=== PATIENT | female | born 1965 | race Caucasian/White ===

== ENCOUNTER 2017-02-13 22:03 | Inpatient (IN) | payer MEDICAID, OTHER ==
--- NOTE | 2017-02-13 22:33 | ED Physician Chart ---
ED Chief Complaint/HPI - Patient Information Date Seen:: 02/13/17 Time Seen:: 22:20 Chief Complaint:: Abdominal pain since about 1 pm today. History of Present Illness:: Pt is [place] speaking. Interpretation is provided by nursing staff member Zoila. Pt was brought in by private auto because of onset of upper abdominal pain since about 1 pm today. Pain is characterized as constant, pressure like, localized at upper abdomen extending to RUQ. No fever. Pt has intermittent nausea. No vomiting. Last BM at 3 pm today that was small in quantity. No hematochezia or melena. ?dysuria. No urgency or frequency with urination. No gross hematuria. Pain can be worsened with lying down and can be improved with sitting up. Allergies:: Allergies Allergy/AdvReac Type Severity Reaction Status Date / Time No Known Allergies Allergy Verified 02/13/17 22:19 Vitals:: Vital Signs - 8 hr 02/13/17 22:03 Temp 97.2 F HR 70 RR 16 BP 125/60 O2 Sat % 95 Historian:: Patient Family MD/PCP:: Dr. Main LMP:: postmenopausal Review:: Nurse's Note Reviewed ED Review of Systems - Review of Systems General/Constitutional: No fever, No chills, No weight loss, No weakness, No edema, Loss of appetite Skin: No rash, No bruising Head: No headache, No light-headedness Eyes: No loss of vision, No pain ENT: No earache, No nasal drainage, No sore throat Neck: No neck pain, No swelling, No stiffness, No mass noted Cardio Vascular: No chest pain, No palpitations, No edema GI: Nausea, No vomiting, No diarrhea, Pain, No melena, No hematochezia, No hematemesis G/U: Dysuria, No frequency, No hematuria Water Control Supervisor: No vaginal discharge, No abnormal vaginal bleed Musculoskeletal: No bone or joint pain, No back pain Endocrine: No polyuria, No polydipsia Psychiatric: No prior psych history Hematopoietic: No bruising, No lymphadenopathy Allergic/Immuno: No urticaria, No angioedema Neurological: No syncope, Focal symptoms, No weakness, No headache, No confusion ED Past Medical History - Past Medical History Past Medical History: No significant medical hx Family History: None Social History: Non Smoker, No Alcohol, No Drug Use, , Other (lives with her ) Employment:: unemployed. Surgical History: other (right lower leg surgery related to fx 07/2016) Psychiatricy History: None Medication: Reviewed Family Medical History - Family Member Mother History Unknown: Yes ED Physical Exam - Physical Examination General/Constitutional: Awake, Well-developed, well-nourished, Alert, GCS 15, Non-toxic appearing, Ambulatory Other Gen/Cons comments:: Breathes comfortably, speaks clearly, and interacts normally. Head: Atraumatic Eyes: Lids, conjuctiva normal, PERRL, EOMI Other Eyes comments:: Anicteric sclera Skin: Nl inspection, No rash, No skin lesions, No ecchymosis, Well hydrated, No lymphadenopathy ENMT: External ears, nose nl, Nasal exam nl, Oropharynx nl Neck: Nontender, Full ROM w/o pain, No JVD, No nuchal rigidity, No mass, No stridor Respiratory: Nl effort/Exclusion, Clear to Auscultation, No Wheeze/Rhonchi/Rales Cardio Vascular: RRR, No murmur, gallop, rubs GI: No organomegaly, No hernia, Normal BS's, Nondistended, No mass/bruits, No McBurney tenderness Other GI comments:: Tenderness at epigastric region/medial aspect of RUQ. No R/G. Negative Newsoms's and Fajardo-Fallon's signs, and +/- Cristobal's sign. Abdomen is obese but soft. : No CVA tenderness Extremities: No tenderness or effusion, No edema Neuro/Psych: Alert/oriented (oriented x 3), Judgement/insight normal, Mood normal, Normal gait, No focal deficits ED Labs/Radiology/EKG Results - Lab Results Results: Laboratory Tests 02/13/17 02/13/17 02/13/17 22:40 22:55 22:55 WBC 9.6 RBC 5.11 H Hgb 13.8 Hct 42.9 MCV 83.8 MCH 27.1 MCHC Differential 32.3 RDW 14.4 Plt Count 232 MPV 11.0 Neutrophils % 77.5 Lymphocytes % 13.4 L Monocytes % 4.6 Eosinophils % 0.9 Basophils % 3.6 H PT 9.2 L INR 0.89 PTT (Actin FS) 25.2 L Sodium 134 L Potassium 4.0 Chloride 100 Carbon Dioxide 27.5 Anion Gap 10.5 BUN 14 Creatinine 0.7 Est GFR ( Amer) > 60.0 Est GFR (Non-Af Amer) > 60.0 BUN/Creatinine Ratio 20.0 Glucose 126 H Calcium 9.3 Total Bilirubin 1.9 H AST 289 H ALT 338 H Alkaline Phosphatase 265 H Creatine Kinase 55 Troponin I Total Protein 7.3 Albumin 3.8 Globulin 3.5 Albumin/Globulin Ratio 1.1 Amylase 45 Lipase 43 Serum , Qual 02/13/17 02/13/17 22:55 22:55 WBC RBC Hgb Hct MCV MCH MCHC Differential RDW Plt Count MPV Neutrophils % Lymphocytes % Monocytes % Eosinophils % Basophils % PT INR PTT (Actin FS) Sodium Potassium Chloride Carbon Dioxide Anion Gap BUN Creatinine Est GFR ( Amer) Est GFR (Non-Af Amer) BUN/Creatinine Ratio Glucose Calcium Total Bilirubin AST ALT Alkaline Phosphatase Creatine Kinase Troponin I < 0.01 L Total Protein Albumin Globulin Albumin/Globulin Ratio Amylase Lipase Serum , Qual NEGATIVE Laboratory Last Values WBC 9.6 Th/cmm (4.8-10.8) 02/13/17 22:40 RBC 5.11 Mil/cmm (3.80-5.10) H 02/13/17 22:40 Hgb 13.8 gm/dL (12-16) 02/13/17 22:40 Hct 42.9 % (41.0-60) 02/13/17 22:40 MCV 83.8 fl (81-100) 02/13/17 22:40 MCH 27.1 pg (27.0-31.0) 02/13/17 22:40 MCHC Differential 32.3 pg (28.0-36.0) 02/13/17 22:40 RDW 14.4 % (11.5-20.0) 02/13/17 22:40 Plt Count 232 Th/cmm (150-400) 02/13/17 22:40 MPV 11.0 fl 02/13/17 22:40 Neutrophils % 77.5 % (40.0-80.0) 02/13/17 22:40 Lymphocytes % 13.4 % (20.0-50.0) L 02/13/17 22:40 Monocytes % 4.6 % (2.0-10.0) 02/13/17 22:40 Eosinophils % 0.9 % (0.0-5.0) 02/13/17 22:40 Basophils % 3.6 % (0.0-2.0) H 02/13/17 22:40 PT 9.2 SECONDS (9.5-11.5) L 02/13/17 22:55 INR 0.89 (0.5-1.4) 02/13/17 22:55 PTT (Actin FS) 25.2 SECONDS (26.0-38.0) L 02/13/17 22:55 Sodium 134 mEq/L (136-145) L 02/13/17 22:55 Potassium 4.0 mEq/L (3.5-5.1) 02/13/17 22:55 Chloride 100 mEq/L (98-107) 02/13/17 22:55 Carbon Dioxide 27.5 mEq/L (21.0-31.0) 02/13/17 22:55 Anion Gap 10.5 (7.0-16.0) 02/13/17 22:55 BUN 14 mg/dL (7-25) 02/13/17 22:55 Creatinine 0.7 mg/dL (0.6-1.2) 02/13/17 22:55 Est GFR ( Amer) > 60.0 ml/min (>90) 02/13/17 22:55 Est GFR (Non-Af Amer) > 60.0 ml/min 02/13/17 22:55 BUN/Creatinine Ratio 20.0 02/13/17 22:55 Glucose 126 mg/dL (70-105) H 02/13/17 22:55 Calcium 9.3 mg/dL (8.6-10.3) 02/13/17 22:55 Total Bilirubin 1.9 mg/dL (0.3-1.0) H 02/13/17 22:55 AST 289 U/L (13-39) H 02/13/17 22:55 ALT 338 U/L (7-52) H 02/13/17 22:55 Alkaline Phosphatase 265 U/L (34-104) H 02/13/17 22:55 Creatine Kinase 55 U/L (30-223) 02/13/17 22:55 Troponin I < 0.01 ng/mL (0.01-0.05) L 02/13/17 22:55 Total Protein 7.3 gm/dL (6.0-8.3) 02/13/17 22:55 Albumin 3.8 gm/dL (3.7-5.3) 02/13/17 22:55 Globulin 3.5 gm/dL 02/13/17 22:55 Albumin/Globulin Ratio 1.1 (1.0-1.8) 02/13/17 22:55 Amylase 45 U/L (29-103) 02/13/17 22:55 Lipase 43 U/L (11-82) 02/13/17 22:55 Serum , Qual NEGATIVE (NEGATIVE) 02/13/17 22:55 - Radiology Results Results: Abdominal sonogram (Preliminary report): significant for GB 9.3 x 3 x 3 cm. GB wall size above normal limit. GB wall 4.1 mm. A mobile stone seen in GB measuring 1.5 cm. A mobile stone seen in GB and GB wall size above normal limit (cholecystitis) - EKG Interpretations EKG Time:: 22:53 Rate & Rhythm: NSR with VR 67 Comments:: No acute ischemic changes. ED Septic Shock - . Is Septic Shock (SBP<90, OR Lactate>4 mmol\L) present?: No - <6hrs of presentation: Vital Signs: Vital Signs - 8 hr 02/13/17 22:03 Temp 97.2 F HR 70 RR 16 BP 125/60 O2 Sat % 95 ED Reassessment (Disposition) - Reassessment Reassessment:: 0015 Pt has been repeatedly evaluated. Pain has subsided. Pt does not need more pain control. Abdominal sonography is in progress. 0055 Abdominal sonographic report just became available. Lab, EKG and sonographic findings have been reviewed with pt. Management plan has been discussed. Admitting physician is to be contacted. 0110 Case was discussed with Dr. Lin with pertinent H & P, EKG, lab, and sonographic findings reviewed with pt. Pt is to be admitted to [facility] under his care. Reassessment Condition:: Improved - Diagnosis Diagnosis:: Cholelithiasis with acute cholecystitis. Stable. - Patient Disposition Admitted to:: Med/Surg Admitting Medical Physician:: Zoran Lin Time:: 01:15 Condition at Disposition:: Stable, Improved ED Discharge Plan - Patient Disposition Admit/Discharge/Transfer: Acute Care w/in this hosp
[2017-02-13] MEDS ORDERED: HYDROmorphone 1 mg/mL 1mL Syr IVP STA (22:38)
[2017-02-13] MEDS ORDERED: HYDROmorphone 1 mg/mL 1mL Syr ONE (22:49)
[2017-02-13 22:52] LABS: % BASOPHILS 3.6 % (0.0-2.0); % EOSINOPHILS 0.9 % (0.0-5.0); % LYMPHOCYTES 13.4 % (20.0-50.0); % MONOCYTES 4.6 % (2.0-10.0); % NEUTROPHILS 77.5 % (40.0-80.0); HEMATOCRIT 42.9 % (41.0-60); HEMOGLOBIN 13.8 gm/dL (12-16); MEAN CELL VOLUME 83.8 fl (81-100); MEAN CORPUSCULAR HEMOGLOBIN 27.1 pg (27.0-31.0); MEAN CORPUSCULAR HGB CONC 32.3 pg (28.0-36.0); NEUTROPHILE ABSOLUTE 7.5 Th/cmm (1.8-8.0); PLATELET COUNT 232 Th/cmm (150-400); RED BLOOD COUNT 5.11 Mil/cmm (3.80-5.10); RED CELL DISTRIBUTION WIDTH 14.4 % (11.5-20.0); WHITE BLOOD COUNT 9.6 Th/cmm (4.8-10.8)
[2017-02-13 23:21] LABS: INR 0.89 (0.5-1.4); PROTHROMBIN TIME (TEST) 9.2 SECONDS (9.5-11.5)
[2017-02-13 23:23] LABS: ALB/GLOB RATIO 1.1 (1.0-1.8); ALKALINE PHOSPHATASE 265 U/L (34-104); AMYLASE SERUM 45 U/L (29-103); ANION GAP 10.5 (7.0-16.0); BILIRUBIN,TOTAL 1.9 mg/dL (0.3-1.0); BUN - UREA NITROGEN 14 mg/dL (7-25); CALCIUM SERUM 9.3 mg/dL (8.6-10.3); CARBON DIOXIDE 27.5 mEq/L (21.0-31.0); CHLORIDE 100 mEq/L (98-107); CREATININE - SERUM 0.7 mg/dL (0.6-1.2); GLUCOSE 126 mg/dL (70-105); LIPASE 43 U/L (11-82); SGOT 289 U/L (13-39); SGPT/ALT 338 U/L (7-52); SODIUM SERUM 134 mEq/L (136-145)
[2017-02-14] MEDS ORDERED: Ampicillin Sodium/Sulbactam 3 GM in Sodium Chloride 0.9% 100 ML IV ONE (00:54)
[2017-02-14] MEDS ORDERED: D5-0.45NS 1,000 ML IV SCH (01:26)
[2017-02-14 05:24] LABS: % BASOPHILS 0.7 % (0.0-2.0); % EOSINOPHILS 1.4 % (0.0-5.0); % LYMPHOCYTES 19.1 % (20.0-50.0); % MONOCYTES 6.3 % (2.0-10.0); % NEUTROPHILS 72.5 % (40.0-80.0); HEMOGLOBIN 12.7 gm/dL (12-16); MEAN CELL VOLUME 83.4 fl (81-100); MEAN CORPUSCULAR HEMOGLOBIN 27.9 pg (27.0-31.0); MEAN CORPUSCULAR HGB CONC 33.5 pg (28.0-36.0); MEAN PLATELET VOLUME 9.6 fl; NEUTROPHILE ABSOLUTE 5.1 Th/cmm (1.8-8.0); PLATELET COUNT 202 Th/cmm (150-400); RED BLOOD COUNT 4.56 Mil/cmm (3.80-5.10); RED CELL DISTRIBUTION WIDTH 14.3 % (11.5-20.0)
[2017-02-14 05:26] LABS: WHITE BLOOD COUNT 7.2 Th/cmm (4.8-10.8)
[2017-02-14 05:42] LABS: ALB/GLOB RATIO 1.1 (1.0-1.8); ALKALINE PHOSPHATASE 242 U/L (34-104); ANION GAP 6.8 (7.0-16.0); BILIRUBIN,TOTAL 2.3 mg/dL (0.3-1.0); BUN - UREA NITROGEN 12 mg/dL (7-25); CALCIUM SERUM 8.8 mg/dL (8.6-10.3); CARBON DIOXIDE 27.9 mEq/L (21.0-31.0); CHLORIDE 101 mEq/L (98-107); CREATININE - SERUM 0.6 mg/dL (0.6-1.2); GLUCOSE 123 mg/dL (70-105); POTASSIUM SERUM 3.7 mEq/L (3.5-5.1); SGOT 321 U/L (13-39); SGPT/ALT 347 U/L (7-52); SODIUM SERUM 132 mEq/L (136-145)
--- NOTE | 2017-02-14 08:21 | Diagnostic Imaging Report ---
Ultrasound abdomen HISTORY: Upper Abdominal pain COMPARISON: None Technique: Sonography of the abdomen was performed in multiple planes. FINDINGS: Exam is limited due to body habitus and bowel gas. The liver demonstrates mildly heterogeneous echotexture. No discrete focal lesions identified. No the liver margins are not well-defined on this exam. The liver measures 18 cm. Gallstones are noted including stones of the gallbladder neck. The gallbladder wall measures 4 mm. No evidence of pericholecystic fluid. The common bile duct measures 6 mm. Evaluation of the pancreas is limited due to bowel gas. The right kidney measures 11.0 x 4.2 cm. No evidence of focal lesions or hydronephrosis. The left kidney measures 10.1 x 4.7 cm. No evidence of focal lesions or hydronephrosis. The spleen measures 10.1 cm. IMPRESSION: Limited exam due to body habitus and bowel gas. Cholelithiasis. Mildly prominent gallbladder wall is noted. No evidence of pericholecystic fluid. Please correlate with clinical findings. If indicated nuclear medicine HIDA scan may be obtained for further assessment. Mild hepatomegaly with heterogeneous liver which may reflect underlying hepatocellular disease, correlate clinically.
[2017-02-14 08:36] LABS: URINE BILIRUBIN MODERATE (NEGATIVE); URINE BLOOD NEGATIVE (NEGATIVE); URINE GLUCOSE (UA) NEGATIVE (NEGATIVE); URINE KETONE NEGATIVE (NEGATIVE); URINE PROTEIN NEGATIVE (NEGATIVE)
--- NOTE | 2017-02-14 08:40 | History and Physical ---
History of Present Illness - HPI Chief Complaint: abdominal pain HPI: 51 year old female who presents to [facility] ER for acute abdominal pain with intermittent nausea and vomiting. Patient has RUQ abd pain. no dysuria, urgency or frequency. No significant medical history. While in the ER the patient had initial lab work WBC 9.6 H/H 13.8/42.9 Platelet 232. AST 289 ALT 338 ALK 265 amylase 45 lipase 43. Patient was subsequently admitted for further evaluation and treatment. Vital Signs: Last Vital Signs Temp 97.5 F 02/14/17 07:40 Pulse 66 02/14/17 07:40 Resp 18 02/14/17 07:40 BP 101/45 02/14/17 07:40 Pulse Ox 100 02/14/17 07:40 Past Medical History Cardiovascular: Report: No Pertinent Hx Pulmonary: Report: No Pertinent Hx BRAILLE PROOFREADER: Report: No Pertinent Hx GI: Report: No Pertinent Hx Psych: Report: No Pertinent Hx Musculoskeletal: Report: No Pertinent Hx Rheumatologic: Report: No pertinent Hx Infectious Disease: Report: No Pertinent Hx Renal/: Report: No Pertinent Hx Endocrine: Report: No Pertinent Hx Dermatology: Report: No Pertinent Hx - Past Surgical History Past Surgical History: No pertinent Hx Family Medical History - Family Member Mother History Unknown: Yes Ethnicity: Living Status: Hx Family Cancer: No Hx Family Coronary Artery Disease: No Hx Family Congestive Heart Failure: No Hx Family Hypertension: No Hx Family Stroke: No Hx Family Diabetes: Yes Hx Family Seizures: No Hx Family Dementia: No Hx Family AIDS: No Hx Family HIV: No Hx Family COPD: No Hx Family Hepatitis: No Hx Family Psychiatric Problems: No Hx Family Tuberculosis: No Social History Smoke: No Alcohol: None Drugs: None Lives: With Family - Medications Home Medications: Home Medication Medication Instructions Recorded Type NK [No Home Meds] 02/13/17 History - Allergies Allergies/Adverse Reactions: Allergies Allergy/AdvReac Type Severity Reaction Status Date / Time No Known Allergies Allergy Verified 02/13/17 22:19 Review of Systems - Review of Systems Constitutional: Report: No Significant Eyes: Report: No Significant ENT: Report: No Significant Respiratory: Report: No Significant Cardiovascular: Report: No Significant Gastrointestinal: Report: Nausea, Vomiting, Abdominal Pain Genitourinary: Report: No Significant Musculoskeletal: Report: No Significant Skin: Report: No Significant Neurological: Report: No Significant Physical Exam - Physical Exam HEENT: Report: Ears Nose Throat within normal limits, Pharnyx within normal limits Neck: Report: Within normal limits Cardiovascular Systems: Report: +s1/s2 noted, Regular, Rate and Rhythm Respiratory: Report: Breath Sounds are within normal limits, Clear to Auscultation of lung flores Abdomen: Report: Tender to palpation (RUQ) Back: Report: Inspection of back is within normal limits. Extremities: Report: Non-tender to palpation. Skin: Report: Color of skin is within normal limits Neuro/Psych: Report: Mood affect is within normal limits, A+Ox3 - Lab Results All Lab Results last 24 hours: Laboratory Results - last 24 hr 02/14/17 02/14/17 05:10 05:10 WBC 7.2 D RBC 4.56 Hgb 12.7 Hct 38.0 L D MCV 83.4 MCH 27.9 MCHC Differential 33.5 RDW 14.3 Plt Count 202 MPV 9.6 Neutrophils % 72.5 Lymphocytes % 19.1 L Monocytes % 6.3 Eosinophils % 1.4 Basophils % 0.7 Sodium 132 L Potassium 3.7 Chloride 101 Carbon Dioxide 27.9 Anion Gap 6.8 L BUN 12 Creatinine 0.6 Est GFR ( Amer) > 60.0 Est GFR (Non-Af Amer) > 60.0 BUN/Creatinine Ratio 20.0 Glucose 123 H Calcium 8.8 Total Bilirubin 2.3 H AST 321 H ALT 347 H Alkaline Phosphatase 242 H Total Protein 6.4 Albumin 3.4 L Globulin 3.0 Albumin/Globulin Ratio 1.1 - Assessment Assessment: RUQ abd pain cholelithiasis elevated LFTs - Plan Plan: NPO continue IV fluids general surgery consult GI consult Abd US/ CT abd CBC,CMP, amylase, lipase. continue IV zosyn protonix IV
[2017-02-14 08:43] LABS: URINE COLOR YELLOW
[2017-02-14] MEDS ORDERED: D5-0.9NS w/KCL 20mEq 1,000 ML IV SCH ×2 (08:45→14:36)
[2017-02-14 08:48] LABS: URINE BACTERIA FEW /hpf (NONE SEEN); URINE EPITHELIAL CELLS MODERATE /lpf (FEW); URINE RBC 0-2 /hpf (0-5); URINE WBC 0-2 /hpf (0-5)
[2017-02-14 09:01] LABS: AMYLASE SERUM 34 U/L (29-103); LIPASE 23 U/L (11-82)
--- NOTE | 2017-02-14 09:19 | General Progress Note ---
Subjective - Review of Systems Service Date: 02/14/17 Events since last encounter: has GB stones with elevated LFT MRCP ordered Objective - Results Result Diagrams: 02/14/17 05:10 02/14/17 05:10 Recent Labs: Laboratory Last Values WBC 7.2 Th/cmm (4.8-10.8) D 02/14/17 05:10 RBC 4.56 Mil/cmm (3.80-5.10) 02/14/17 05:10 Hgb 12.7 gm/dL (12-16) 02/14/17 05:10 Hct 38.0 % (41.0-60) L D 02/14/17 05:10 MCV 83.4 fl (81-100) 02/14/17 05:10 MCH 27.9 pg (27.0-31.0) 02/14/17 05:10 MCHC Differential 33.5 pg (28.0-36.0) 02/14/17 05:10 RDW 14.3 % (11.5-20.0) 02/14/17 05:10 Plt Count 202 Th/cmm (150-400) 02/14/17 05:10 MPV 9.6 fl 02/14/17 05:10 Neutrophils % 72.5 % (40.0-80.0) 02/14/17 05:10 Lymphocytes % 19.1 % (20.0-50.0) L 02/14/17 05:10 Monocytes % 6.3 % (2.0-10.0) 02/14/17 05:10 Eosinophils % 1.4 % (0.0-5.0) 02/14/17 05:10 Basophils % 0.7 % (0.0-2.0) 02/14/17 05:10 PT 9.2 SECONDS (9.5-11.5) L 02/13/17 22:55 INR 0.89 (0.5-1.4) 02/13/17 22:55 PTT (Actin FS) 25.2 SECONDS (26.0-38.0) L 02/13/17 22:55 Sodium 132 mEq/L (136-145) L 02/14/17 05:10 Potassium 3.7 mEq/L (3.5-5.1) 02/14/17 05:10 Chloride 101 mEq/L (98-107) 02/14/17 05:10 Carbon Dioxide 27.9 mEq/L (21.0-31.0) 02/14/17 05:10 Anion Gap 6.8 (7.0-16.0) L 02/14/17 05:10 BUN 12 mg/dL (7-25) 02/14/17 05:10 Creatinine 0.6 mg/dL (0.6-1.2) 02/14/17 05:10 Est GFR ( Amer) > 60.0 ml/min (>90) 02/14/17 05:10 Est GFR (Non-Af Amer) > 60.0 ml/min 02/14/17 05:10 BUN/Creatinine Ratio 20.0 02/14/17 05:10 Glucose 123 mg/dL (70-105) H 02/14/17 05:10 Calcium 8.8 mg/dL (8.6-10.3) 02/14/17 05:10 Total Bilirubin 2.3 mg/dL (0.3-1.0) H 02/14/17 05:10 AST 321 U/L (13-39) H 02/14/17 05:10 ALT 347 U/L (7-52) H 02/14/17 05:10 Alkaline Phosphatase 242 U/L (34-104) H 02/14/17 05:10 Creatine Kinase 55 U/L (30-223) 02/13/17 22:55 Troponin I < 0.01 ng/mL (0.01-0.05) L 02/13/17 22:55 Total Protein 6.4 gm/dL (6.0-8.3) 02/14/17 05:10 Albumin 3.4 gm/dL (3.7-5.3) L 02/14/17 05:10 Globulin 3.0 gm/dL 02/14/17 05:10 Albumin/Globulin Ratio 1.1 (1.0-1.8) 02/14/17 05:10 Amylase 34 U/L (29-103) 02/14/17 05:10 Lipase 23 U/L (11-82) 02/14/17 05:10 Serum , Qual NEGATIVE (NEGATIVE) 02/13/17 22:55 Urine Source MIDSTREAM 02/14/17 05:00 Urine Color YELLOW 02/14/17 05:00 Urine Clarity HAZY (CLEAR) 02/14/17 05:00 Urine pH 7.0 (4.6 - 8.0) 02/14/17 05:00 Ur Specific [place] 1.020 (1.005-1.030) 02/14/17 05:00 Urine Protein NEGATIVE mg/dL (NEGATIVE) 02/14/17 05:00 Urine Glucose (UA) NEGATIVE mg/dL (NEGATIVE) 02/14/17 05:00 Urine Ketones NEGATIVE mg/dL (NEGATIVE) 02/14/17 05:00 Urine Blood NEGATIVE (NEGATIVE) 02/14/17 05:00 Urine Nitrate NEGATIVE (NEGATIVE) 02/14/17 05:00 Urine Bilirubin MODERATE (NEGATIVE) H 02/14/17 05:00 Urine Urobilinogen 2.0 E.U./dL (0.2 - 1.0) 02/14/17 05:00 Ur Leukocyte Esterase NEGATIVE (NEGATIVE) 02/14/17 05:00 Urine RBC 0-2 /hpf (0-5) 02/14/17 05:00 Urine WBC 0-2 /hpf (0-5) 02/14/17 05:00 Ur Epithelial Cells MODERATE /lpf (FEW) 02/14/17 05:00 Urine Bacteria FEW /hpf (NONE SEEN) 02/14/17 05:00 Urine Mucus FEW /lpf (FEW) 02/14/17 05:00 - Physical Exam Vitals and I&O: Vital Signs Temp 97.5 F 02/14/17 08:00 Pulse 66 02/14/17 08:00 Resp 18 02/14/17 08:00 BP 101/45 02/14/17 08:00 Pulse Ox 100 02/14/17 07:40 Intake & Output 02/13/17 02/14/17 02/14/17 18:59 06:59 18:59 Weight (lbs) 115.575 kg 115.575 kg Other: Stool Characteristics Hard Active Medications: Current Medications Potassium Chloride/Dextrose/Sod Cl (D5-0.9ns W/Kcl 20meq) 1,000 mls @ 75 mls/ hr IV .[id number] ABBI Stop: 04/15/17 08:44 Pantoprazole Sodium (Protonix) 40 mg IVP DAILY ABBI Stop: 04/15/17 08:59 - Procedures Procedures: Procedures Procedure Code Date D & C NEC 69.09 05/03/01 D & C POST DELIVERY 69.02 11/10/98 DILATION AND CURETTAGE 24819 05/03/01 DX ULTRASOUND-GRAV UTER 88.78 09/30/94 MONITORING NOS 75.34 03/03/97 TREATMENT OF MISCARRIAGE 44530 11/10/98
--- NOTE | 2017-02-14 11:09 | Diagnostic Imaging Report ---
Exam: CT examination the abdomen pelvis HISTORY: Abdominal pain Total DLP equals 918 CTDI equals 17.5 Findings: Multiple contiguous thin section of the abdomen pelvis obtained from lower thorax to pubic symphysis without administration intravenous or oral contrast material. The study demonstrates normal aeration of lung parenchyma the bases. The liver and spleen are intact. The adrenal glands are normal. The pancreas is normal. The gallbladder is intact. No free fluid is noted. There is evidence of diverticular disease without diverticulitis. The uterus is a prominent. There is a question of left ovarian cyst measuring 2.9 cm ultrasound examination of pelvis might be helpful. The visualized appendix is intact. The urinary bladder is contracted. Bony structures demonstrate no evidence for lytic or blastic changes. IMPRESSION: Essentially unremarkable examination of the abdomen pelvis Mild diverticulosis without diverticulitis Left ovarian cyst measuring 2.9 cm if clinically indicated ultrasound examination of pelvis would be helpful.
--- NOTE | 2017-02-15 00:07 | Consultation ---
DATE OF CONSULTATION: 02/14/2017 SURGICAL CONSULTATION REFERRING PHYSICIAN: Dr. Zoran Lin. REASON FOR CONSULTATION: Abdominal pain. Thank you for referring this patient to me. HISTORY OF PRESENT ILLNESS: This is a 51-year-old female, who came into the Emergency Room because of pain in right upper quadrant. The patient underwent studies including CT scan and ultrasound, which showed multiple gallstones in the gallbladder. LABORATORY STUDIES: WBC is normal. The alkaline phosphatase elevated to 289. Amylase was normal. Bilirubin elevated to 2.3. PHYSICAL EXAMINATION: Tenderness in right upper quadrant. RECOMMENDATIONS: MRCP will be done to rule out common duct stone. We will follow with you. JOB# [id number]
== END 2017-02-14 15:23 | disposition left against medical advice (07) | DRG 445 ==
LOC: ER 22:03 → MSI 02-14 01:10
PROVIDERS: ADMIT Family Medicine; ATTEND Family Medicine
DX: K80.00 Calculus of gallbladder with acute cholecystitis without obstruction (principal); Z68.41 Body mass index [BMI] 40.0-44.9, adult; E87.1 Hypo-osmolality and hyponatremia; E66.9 Obesity, unspecified; Z53.21 Procedure and treatment not carried out due to patient leaving prior to being seen by health care provider; Z83.3 Family history of diabetes mellitus
CPT/HCPCS: 36415-UA; 76700-TC; 80053-TC; 81001-TC; 82150-TC; 82550-TC; 83690-TC; 84484-TC; 84703-TC; 85025-TC; 85610-TC; 93005; 96375; C9113; J0295; J1170; J2405